=== PATIENT | female | born 1975 | race Caucasian/White ===

== ENCOUNTER 2021-07-19 13:28 | Emergency (ER) | payer OTHER, SELFPAY ==
[2021-07-19] VITALS (28 sets, daily range): BP systolic 124–153; BP diastolic 65–93; PULSE 73–92; RESP 10–22; TEMP 36.9; O2SAT 92–100
--- NOTE | ~2021-07-19 | CT_ITS ---
EXAMINATION: CTA chest PE protocol DATE: 07/19/2021 18:37 INDICATION: Chest pain. TECHNIQUE: Computed tomography angiography (CTA) of the chest was performed with 100 mL Omnipaque-350 intravenous contrast timed to evaluate the pulmonary arteries. Coronal maximum intensity projection 3D-reconstructions were created by the technologist. Automated exposure control and iterative reconst ruction technique were employed. The dose-length product was 619.00 mGy-cm. COMPARISON: Chest 2 views 07/19/2021 FINDINGS: There is minimal atelectasis in the lungs. No pleural effusion. The heart size is normal. N o pericardial effusion. There are 4.3 cm and 1.0 cm masses in the spleen measuring low attenuation, l ikely cysts. There is no pulmonary embolus. The bones are unremarkable. IMPRESSION: 1. No pulmonary embolus. Reviewed, dictated and finalized at location A. IMPRESSION: 1. No pulmonary embolus.
--- NOTE | ~2021-07-19 | XR_ITS ---
XR chest 2V DATE: 07/19/2021 14:00 INDICATION: Mid chest pressure. Chest pain. Left arm numbness. TECHNIQUE: PA and lateral views COMPARISON: None FINDINGS: Normal heart size. No hilar or mediastinal enlargement. Bilateral hyperinflation. No pulmon elisabeth infiltrate or consolidation, pleural effusion or pulmonary vascular congestion or pneumothorax. IMPRESSION: Bilateral hyperinflation; no active cardiopulmonary disease Reviewed, dictated and finalized at location B.
--- NOTE | 2021-07-19 13:34 | ECG_ITS ---
Measurements Intervals [place] Rate: 86 P: 59 TX: 159 QRS: -11 QRSD: 88 T: 65 QT: 352 QTc: 423 Interpretive Statements SINUS RHYTHM DELAYED PRECORDIAL R/S TRANSITION BORDERLINE ST-T WAVE ABNORMALITY- INF/LAT LEADS BORDERLINE ECG Electronically Signed On 07-19-2021 13:46:49 CDT by Nawaf Arshad D.O.
[2021-07-19 13:48] LABS: Basophils Percent Auto 0.4 % (0.2-1.2); Eosinophils Absolute Auto 0.1 K/mm3 (0-0.3); Eosinophils Percent Auto 0.6 % (0-4.4); Hematocrit 35.2 % (37.0-47.0); Immature Granulocyte Absolute 0.03 K/mm3 (0.00-0.031); Immature Granulocyte Percent A 0.4 % (0-0.5); Lymphocytes Absolute Auto 1.53 K/mm3 (0.9-3.2); Lymphocytes Percent Auto 18.8 % (18.3-44.2); Mean Corpuscular HGB Conc 31.3 g/dl (32-36); Mean Corpuscular Hemoglobin 23.4 pg (26-34); Mean Corpuscular Volume 74.9 fl (80-100); Mean Platelet Volume 10.4 fl (7.4-10.4); Monocytes Absolute Auto 0.4 K/mm3 (0.1-0.6); Neutrophils Absolute Auto 6.1 K/mm3 (1.3-6.7); Neutrophils Percent Auto 74.8 % (45.5-73.1); Platelet Count Result 274 k/mm3 (150-375); Red Cell Distribution Width 14.8 % (11.5-14.5); White Blood Count 8.2 K/mm3 (4.5-10.0)
[2021-07-19 13:59] LABS: INR 0.9; Prothrombin Time 12.5 Seconds (11.1-14.7)
[2021-07-19 14:00] LABS: Partial Thromboplastin Time 22.9 SECONDS (22.3-36.8)
[2021-07-19 14:07] LABS: Anion Gap 9 mmol/L (8-16); Blood Urea Nitrogen 15 mg/dL (7-17); Calcium 9.2 mg/dL (8.4-10.2); Carbon Dioxide 24 mmol/L (22-30); Chloride 105 mmol/L (98-107); Estimated CRCL calculation 85 ml/min; Estimated Glomerular Filt Rate > 60; Glucose 103 mg/dL (65-110); Potassium 4.1 mmol/L (3.4-5.0); Sodium 138 mmol/L (137-145)
[2021-07-19 14:21] LABS: Troponin I < 0.012 ng/mL (0.000-0.034)
--- NOTE | 2021-07-19 16:04 | PC.NURSE ---
Pt not in room at this time.
--- NOTE | 2021-07-19 16:36 | PC.NURSE ---
Pt was around COVID + patient July 09. Pt is fully vaccinated as of May 2021
--- NOTE | 2021-07-19 16:36 | ED.GENADULT ---
HPI - General Adult General Chief complaint: Chest Pain Stated complaint: htn/back pain/cp Time Seen by Provider: 07/19/21 16:10 Source: patient History of Present Illness HPI narrative: Patient is a 45 y/o female complaining of midsternal chest discomfort starting 1 week ago. She describes her chest discomfort as a pressure and rates it as 6/10. There is some pain radiation to left shoulder. There is no known alleviating or exacerbating factor. She has some numbness in arms. She noticed that her BP was high in 150s/80s for last 2 days. She states that she has been under some stress lately. Related Data Home Medications Medication Instructions Recorded Confirmed sertraline mg 07/19/21 07/19/21 Allergies Allergy/AdvReac Type Severity Reaction Status Date / Time No Known Allergies Allergy Verified 07/19/21 16:34 Review of Systems Constitutional: Constitutional: Denies chills, Denies fever(s), Denies headache(s) and Denies weakness Eyes: Eyes: Denies blurry vision ENT: Denies headache(s) and Denies neck pain Cardiovascular: Cardiovascular: Reports chest pain and Denies dyspnea Respiratory: Respiratory: Denies cough and Denies dyspnea Gastrointestinal: Gastrointestinal: Denies abdominal pain, Denies diarrhea, Denies nausea and Denies vomiting Genitourinary: Genitourinary: Denies hematuria and Denies dysuria Musculoskeletal: Musculoskeletal: Denies back pain and Denies neck pain Neurologic: Denies headache(s), Reports paresthesias and Denies weakness Exam Const: General: no acute distress and well developed Orientation/consciousness: oriented to person, oriented to place, oriented to time and patient oriented x3 HENMT: Head: normocephalic Ears: external ears normal General nose exam: Normal external nose present Eyes: General: appearance normal, both eyes and all related structures Conjunctivae: conjunctivae normal Neck: Neck: normal visual inspection and full ROM Chest: Chest palpation & inspection: normal inspection of the chest and no tenderness Resp: Effort & Inspection: normal respiratory effort Auscultation: clear to auscultation bilaterally Cardio: Rate: regular rate Rhythm: regular rhythm GI: GI Palp: No abdominal tenderness and Yes Soft to palpation Skin: General skin exam: normal color and turgor normal Neuro: General: oriented to person, oriented to place, oriented to time and patient oriented x3 Cognition (Neuro): normal cognition Extrem: General: normal to inspection, full ROM and no pedal edema Psych: Appearance: grossly normal Mental Status: mental status grossly normal Affect: normal affect Course Vital Signs Vital signs: Vital Signs Temperature 36.9 C 07/19/21 13:37 Pulse Rate 88 07/19/21 13:37 Respiratory Rate 20 07/19/21 13:37 Blood Pressure 153/87 H 07/19/21 13:37 Pulse Oximetry 97 07/19/21 13:37 Temperature 36.9 C 07/19/21 16:24 Pulse Rate 76 07/19/21 18:17 Respiratory Rate 14 07/19/21 18:17 Blood Pressure 124/65 07/19/21 18:17 Pulse Oximetry 100 07/19/21 18:17 Medical Decision Making Vital Signs Vital Signs: Vital Signs Temperature 36.9 C 07/19/21 13:37 Pulse Rate 88 07/19/21 13:37 Respiratory Rate 20 07/19/21 13:37 Blood Pressure 153/87 H 07/19/21 13:37 Pulse Oximetry 97 07/19/21 13:37 Temperature 36.9 C 07/19/21 16:24 Pulse Rate 76 07/19/21 18:17 Respiratory Rate 14 07/19/21 18:17 Blood Pressure 124/65 07/19/21 18:17 Pulse Oximetry 100 07/19/21 18:17 Lab Data Result diagrams: 07/19/21 13:43 07/19/21 13:43 Labs: Lab Results 07/19/21 07/19/21 07/19/21 Range/Units 13:42 13:43 13:43 WBC 8.2 (4.5-10.0) K/mm3 RBC 4.70 (4.2-5.4) M/mm3 Hgb 11.0 L (12.0-15.0) g/dL Hct 35.2 L (37.0-47.0) % MCV 74.9 L (80-100) fl MCH 23.4 L (26-34) pg MCHC 31.3 L (32-36) g/dl RDW 14.8 H (11.5-14.5) % Plt Count 274 (150
[2021-07-19] MEDS: ASPIRIN 81 MG CHEWABLE TABLET 324 MG PO (16:40)
[2021-07-19 16:45] LABS: D Dimer 0.85 ug/mL (<0.48)
[2021-07-19 17:23] LABS: Troponin I < 0.012 ng/mL (0.000-0.034)
[2021-07-19] MEDS: amLODIPine BESYLATE 5 MG TABLET 10 MG PO (18:20)
[2021-07-19 18:56] LABS: Add Urine Microscopic? NO; Appearance Urine Clear (Clear); Bilirubin Urine Negative (Negative); Blood Urine Negative (Negative); Color Urine Yellow (Yellow); Glucose Urine UA Negative (Negative); Ketones Urine Negative (Negative); Leukocyte Esterase Ur Negative LEU/UL (Negative); Nitrate Urine Negative (Negative); Protein Urine Negative (Negative); Specific Grav Ur 1.021 (1.001-1.035); Urobilinogen Urine Negative mg/dL (<2.0)
== END 2021-07-19 21:15 | disposition home or self-care (01) ==
PROVIDERS: General Practice; Emergency Provider Emergency Medicine
DX: R07.2 Precordial pain (principal); I10 Essential (primary) hypertension; R94.31 Abnormal electrocardiogram [ECG] [EKG]
CPT/HCPCS: 36415; 71046; 71275; 80048; 81003; 81025; 84484; 85025; 85380; 85610; 85730; 93005; 99284; A9270; Q9967

== ENCOUNTER 2022-10-04 10:11 | Emergency (ER) | payer OTHER, SELFPAY ==
--- NOTE | ~2022-10-04 | XR_ITS ---
Clinical Indication: Chest pressure PA and lateral views of the chest: Comparison: 07/19/2021 Findings: The lungs are clear, without evidence of focal consolidation or pleural effusion. Cardiome diastinal silhouette is within normal limits. Bones and soft tissues are unremarkable. Impression: Normal chest. Reviewed, dictated and finalized at location . MANAGER Impression: Normal chest.
--- NOTE | 2022-10-04 10:12 | ECG_ITS ---
Measurements Intervals [place] Rate: 73 P: 52 [place]: 154 QRS: -5 QRSD: 89 T: 43 QT: 368 QTc: 406 Interpretive Statements SINUS RHYTHM COMPARED TO ECG 07/19/2021 13:34:37 NO SIGNIFICANT CHANGES Electronically Signed On 10-04-2022 13:24:07 FOOD PRODUCTION MANAGER by Annette Weinberg M.D.
[2022-10-04 10:26] VITALS: BP 136/78; PULSE 70; RESP 16; TEMP 36.8; O2SAT 99
[2022-10-04 10:35] LABS: Basophils Percent Auto 0.7 % (0.2-1.2); Eosinophils Absolute Auto 0.1 K/mm3 (0-0.3); Eosinophils Percent Auto 1.8 % (0-4.4); Hemoglobin 11.3 g/dL (12.0-15.0); Immature Granulocyte Absolute 0.01 K/mm3 (0.00-0.031); Immature Granulocyte Percent A 0.2 % (0-0.5); Lymphocytes Absolute Auto 1.57 K/mm3 (0.9-3.2); Lymphocytes Percent Auto 34.7 % (18.3-44.2); Mean Corpuscular HGB Conc 30.5 g/dl (32-36); Mean Corpuscular Hemoglobin 22.3 pg (26-34); Mean Platelet Volume 10.5 fl (7.4-10.4); Monocytes Absolute Auto 0.3 K/mm3 (0.1-0.6); Monocytes Percent Auto 7.5 % (2.6-8.5); Neutrophils Absolute Auto 2.5 K/mm3 (1.3-6.7); Neutrophils Percent Auto 55.1 % (45.5-73.1); Platelet Count Result 316 k/mm3 (150-375); Red Blood Count 5.07 M/mm3 (4.2-5.4); Red Cell Distribution Width 15.6 % (11.5-14.5); White Blood Count 4.5 K/mm3 (4.5-10.0)
[2022-10-04 10:49] LABS: Alanine Aminotransferase 20 U/L (6-35); Albumin Level 4.3 g/dL (3.5-5.1); Alkaline Phosphatase 54 U/L (38-126); Anion Gap 4 mmol/L (8-16); Aspartate Amino Transferase 25 U/L (14-36); Bilirubin,Total 0.2 mg/dL (0.2-1.3); Blood Urea Nitrogen 20 mg/dL (7-17); Calcium 8.7 mg/dL (8.4-10.2); Carbon Dioxide 30 mmol/L (22-30); Chloride 100 mmol/L (98-107); Estimated CRCL calculation 4 ml/min; Estimated Glomerular Filt Rate > 60; Glucose 98 mg/dL (65-110); Lipase 78 U/L (23-300); Potassium 4.6 mmol/L (3.4-5.0); Sodium 134 mmol/L (137-145)
[2022-10-04 10:57] LABS: INR 0.9; Prothrombin Time 12.1 Seconds (11.1-14.7)
[2022-10-04 10:58] LABS: Partial Thromboplastin Time 23.2 SECONDS (22.3-36.8)
[2022-10-04 11:00] LABS: Troponin I < 0.012 ng/mL (0.000-0.034)
== END 2022-10-04 17:00 | disposition left against medical advice (07) ==
PROVIDERS: Emergency Provider General Practice
DX: R07.89 Other chest pain (principal)
CPT/HCPCS: 36415; 71046; 80053; 83690; 84484; 85025; 85610; 85730; 93005; 99199

== ENCOUNTER 2023-03-16 01:19 | Day surgery (SDC) | payer OTHER, SELFPAY ==
[2023-03-15 14:45] VITALS: BMI 33.5
[2023-03-16] VITALS (10 sets, daily range): BP systolic 106–130; BP diastolic 65–81; PULSE 66–81; RESP 12–20; TEMP 36.5–37.1; O2SAT 97–100; BMI 33.8
[2023-03-16 09:49] LABS: Basophils Percent Auto 0.7 % (0.2-1.2); Eosinophils Absolute Auto 0.1 K/mm3 (0-0.3); Eosinophils Percent Auto 2.1 % (0-4.4); Hematocrit 33.2 % (37.0-47.0); Hemoglobin 10.2 g/dL (12.0-15.0); Immature Granulocyte Absolute 0.01 K/mm3 (0.00-0.031); Immature Granulocyte Percent A 0.2 % (0-0.5); Lymphocytes Absolute Auto 1.37 K/mm3 (0.9-3.2); Lymphocytes Percent Auto 32.4 % (18.3-44.2); Mean Corpuscular HGB Conc 30.7 g/dl (32-36); Mean Corpuscular Hemoglobin 22.4 pg (26-34); Mean Platelet Volume 10.9 fl (7.4-10.4); Monocytes Absolute Auto 0.3 K/mm3 (0.1-0.6); Monocytes Percent Auto 6.4 % (2.6-8.5); Neutrophils Absolute Auto 2.5 K/mm3 (1.3-6.7); Neutrophils Percent Auto 58.2 % (45.5-73.1); Platelet Count Result 223 k/mm3 (150-375); Red Blood Count 4.55 M/mm3 (4.2-5.4); Red Cell Distribution Width 15.7 % (11.5-14.5); White Blood Count 4.2 K/mm3 (4.5-10.0)
[2023-03-16 10:06] LABS: Anion Gap 7 mmol/L (8-16); Blood Urea Nitrogen 22 mg/dL (7-17); Calcium 8.5 mg/dL (8.4-10.2); Carbon Dioxide 25 mmol/L (22-30); Chloride 108 mmol/L (98-107); Estimated CRCL calculation 104 ml/min; Estimated Glomerular Filt Rate > 60; Glucose 105 mg/dL (65-110); Potassium 4.4 mmol/L (3.4-5.0); Sodium 140 mmol/L (137-145)
--- NOTE | 2023-03-16 10:28 | WPDMODSED ---
Moderate Sedation Note-Pt Data Patient Data Diagnosis: chest pain atypical of angina abnormal nuclear stress test preop evaluation for noncardiac surgery Present Complaint: intermittent chest pain/non exertional Procedure to be performed/Plan: left heart catheterization Allergies Allergy/AdvReac Type Severity Reaction Status Date / Time No Known Allergies Allergy Verified 03/16/23 09:22 Home Medications Medication Instructions Recorded Confirmed Type sertraline 50 mg tablet 50 mg PO DAILY 07/19/21 03/15/23 History aspirin 81 mg chewable tablet 81 mg PO DAILY 03/15/23 03/15/23 History rosuvastatin 20 mg tablet 20 mg PO DAILY 03/15/23 03/15/23 History tamoxifen 20 mg tablet 20 mg PO DAILY 03/15/23 03/15/23 History Current Medications: Active Medications Sodium Chloride (Normal Saline Iv) 500 mls @ 100 mls/hr IV CONT .Q5H [facility] Sedation/Anesthesia: No previous sedation/anesthesia problems (including family history). [facility] Social History Social History Smoking status: Former smoker Second hand tobacco smoke exposure: No Alcohol intake: current Drinks per week: 8 Substance use: never Substance use type: does not use Living arrangements: with family Spiritual care concerns: No Mod Sed Physical Exam Physical Exam Pre Procedural Exam: Normal: Neck, Throat, Airway, Lungs, Heart Size, Heart Rate, Heart Rhythm, Neuro Exam and Extremities and Variation: Appearance ( overweight young lady no apparent distress) Hours since solid foods: 12 Hours since liquid intake: 12 Mallampati Classification: class II Internal Medicine - PN: Obj Da Vital Signs Vital Signs: Vital Signs - 24 hr 03/16/23 09:45 Temperature 37.1 C Pulse Rate 81 Respiratory Rate 16 Blood Pressure 129/78 Pulse Oximetry 98 Oxygen Delivery Room Air Meds/Results Medications: Active Medications Generic Name Dose Route Start Last Admin Trade Name Freq PRN Reason Stop Dose Admin Sodium Chloride 500 mls @ 100 mls/hr 03/16/23 09:00 Normal Saline Iv IV CONT .Q5H [facility] Labs 03/16/23 09:30 03/16/23 09:30 Labs: Laboratory Results - last 24 hr 03/16/23 09:30 WBC 4.2 L RBC 4.55 Hgb 10.2 L Hct 33.2 L MCV 73.0 L MCH 22.4 L MCHC 30.7 L RDW 15.7 H Plt Count 223 MPV 10.9 H Immature Gran % (Auto) 0.2 Neut % (Auto) 58.2 Lymph % (Auto) 32.4 [place] % (Auto) 6.4 Eos % (Auto) 2.1 Baso % (Auto) 0.7 Lymph # (Auto) 1.37 [place] # (Auto) 0.3 Eos # (Auto) 0.1 Baso # (Auto) 0.0 Abs Immat Gran (auto) 0.01 Absolute Neuts (auto) 2.5 Absolute Nucleated RBC 0.0 Nucleated RBC % 0.0 Sodium 140 Potassium 4.4 Chloride 108 H Carbon Dioxide 25 Anion Gap 7 L BUN 22 H Creatinine 0.70 Estim Creat Clear Calc 104 Estimated GFR > 60 Glucose 105 Calcium 8.5 ASA Classification/Sedation ASA Classification/Sedation ASA Class: II Emergent: No Risks: Risks, benefits and alternatives explained and patient/family accepted plan for sedation. Patient re-evaluated immediately prior to sedation.
--- NOTE | 2023-03-16 10:55 | WPDCARDPROC ---
Cardiac Cath Procedure Note Date of procedure:: 03/16/23 Performing physician:: Damian Norris MD Indication:: intermittent chest pain abnormal nuclear stress test preop evaluation prior to noncardiac surgery Brief clinical history:: this is a 47-year-old woman who is anticipating surgery for breast cancer. She has been experiencing episodes of chest pain which clinically appeared to be noncardiac. A nuclear stress test was interpreted as demonstrating an apical defect prompting recommendation for angiography. Procedure Procedure performed:: Left ventriculogram coronary angiogram Angio-Seal to right femoral artery Sedation/Medication given:: fentanyl 50 mg Versed 2 mg start time 10:37 a.m. case end time 10:52 a.m. sedation provided by Vanessa Roy RN, trained observer Access site:: right femoral artery Estimated blood loss:: 25 cc Procedure note:: patient was brought to the cardiac catheterization lab in the postabsorptive state where the right femoral triangle was prepped and draped in usual fashion. Anesthesia obtained with 1% lidocaine infiltrated locally. Using a modified Seldinger technique a [place] sheath was placed into right femoral artery after this left heart catheterization was carried out. I used a 5 [place] angled pigtail catheter to perform a left ventriculogram measure left-sided hemodynamics. Following this a 5 [place] FL4 catheter was used to engage inject the left coronary artery in multiple projections. A 5 [place] JR4 catheter was used to engage and inject the right artery in orthogonal projections. Following this the case was terminated. An angiogram was performed of the femoral artery through the sheath after which a 6 [place] Angio-Seal device was deployed with a good hemostatic result. Procedure was well tolerated and uncomplicated and she left the minilab operator evidence of a groin hematoma. Findings:: Hemodynamics: Central aortic pressure is 142 over 82 left ventricle 142/0 end-diastolic pressure 15 there is no gradient on pullback across the aortic valve. Left ventricle: The LV is size all segments contract appropriately the no regional wall motion abnormalities were seen in the global ejection fraction is 55-60% by visual estimation. The left main coronary artery is short and nicely patent the left anterior descending is a medium caliber artery proximally and very small distally. The LAD however is angiographically free of disease. There is very mild calcification seen in the proximal LAD The circumflex is a medium caliber artery. The 1st 2 marginal branches are very small the circumflex however is free of atherosclerosis. right coronary artery is large caliber and dominant to the posterior circulation the RCA is smooth and angiographically normal. Conclusion:: 1. Right coronary dominant circulation with no significant coronary artery disease. 2. Mild proximal LAD calcification with no stenosis 3. normal left ventricular systolic function Damian Norris MD [facility]
== END 2023-03-16 14:04 | disposition home or self-care (01) ==
PROVIDERS: PCP Family Medicine; Visit Provider Specialist
PROC: 4A023N7 Measurement of Cardiac Sampling and Pressure, Left Heart, Percutaneous Approach (ICD-10-PCS; CPT 93452; principal; 2023-03-16 10:30)
DX: Z01.810 Encounter for preprocedural cardiovascular examination (principal); R94.39 Abnormal result of other cardiovascular function study; R07.9 Chest pain, unspecified; C50.919 Malignant neoplasm of unspecified site of unspecified female breast; Z87.891 Personal history of nicotine dependence; Z79.82 Long term (current) use of aspirin
CPT/HCPCS: 36415; 80048; 85025; 93458; C1760; C1887; C1894; G0269; J1644; J2250; J3010; J7040